=== PATIENT | male | born 1985 | race Caucasian/White ===

== ENCOUNTER 2017-03-12 09:13 | Emergency (ER) | payer OTHER ==
[2017-03-12 09:26] VITALS: BP 103/74
--- NOTE | 2017-03-12 10:50 | ED Physician Documentation ---
PD HPI OPHTHO - Stated complaint Stated Complaint: BI LAT EYE IRRITATION - Chief complaint Chief Complaint: Heent - History obtained from History obtained from: Patient - History of Present Illness Timing - onset: Last night Timing - details: Gradual onset Location: Both Quality / character: Burning Associated symptoms: Redness, Discharge Contributing factors: Exposed to conjunctivitis (his son has URI and has developed eye discharge yeserday. Patient with symptoms today. He has his sone with him and looks like conjunctiviits.). No: Wears contacts Similar symptoms before: Has not had sx before Recently seen: Not recently seen Review of Systems Constitutional: denies: Fever, Chills Eyes: reports: Discharge, Irritation. denies: Decreased vision, Photophobia Nose: denies: Rhinorrhea / runny nose, Congestion Throat: denies: Sore throat Respiratory: denies: Cough PD PAST MEDICAL HISTORY - Past Medical History Past Medical History: No - Past Surgical History Past Surgical History: Yes - Present Medications Home Medications: Ambulatory Orders Medication Instructions Recorded Confirmed Sulfacetamide Sodium [Bleph-10] 2 drops EACHEYE Q3H #1 bottle 03/12/17 - Allergies Allergies/Adverse Reactions: Allergies Allergy/AdvReac Type Severity Reaction Status Date / Time No Known Drug Allergies Allergy Verified 03/12/17 09:26 - Social History Does the pt smoke?: No Smoking Status: Never smoker Does the pt drink ETOH?: Yes - Immunizations Immunizations are current?: Yes PD ED PE NORMAL - Vitals Vital signs reviewed: Yes - General General: Alert and oriented X 3, No acute distress, Well developed/nourished - HEENT HEENT: PERRL, EOMI PD ED PE EXPANDED - Eyes Eyes: Injected conj/sclera, Exudate (mild, more on left) Results - Vitals Vitals: Vital Signs - 24 hr 03/12/17 09:23 Temperature 35.4 C L Heart Rate 85 Respiratory 20 Rate Blood Pressure 103/74 O2 Saturation 97 Oxygen O2 Source Room air PD MEDICAL DECISION MAKING - ED course Complexity details: considered differential, d/w patient Departure - Departure Disposition: 01 Home, Self Care Clinical Impression: Conjunctivitis Qualifiers: Conjunctivitis type: acute Acute conjunctivitis type: bacterial Laterality: bilateral Qualified Code(s): H10.33 - Unspecified acute conjunctivitis, bilateral Condition: Stable Record reviewed to determine appropriate education?: Yes Instructions: ED Conjunctivitis Bacterial Follow-Up: JOAQUÍN Diaz [Provider Group] Prescriptions: Sulfacetamide Sodium [Bleph-10] 2 drops EACHEYE Q3H #1 bottle Comments: Use the eye drops every 2-3 hours while awake for a few days until eye is all better. Recheck if not better over the next few days. Discharge Date/Time: 03/12/17 11:16
== END 2017-03-12 11:16 | disposition home or self-care (01) ==
LOC: ED 09:13
DX: H10.33 Unspecified acute conjunctivitis, bilateral (principal); B96.89 Other specified bacterial agents as the cause of diseases classified elsewhere
CPT/HCPCS: 99283

== ENCOUNTER 2019-07-08 10:41 | Emergency (ER) | payer OTHER ==
--- NOTE | 2019-07-08 11:40 | ED Physician Documentation ---
PD HPI URI - Stated complaint Stated Complaint: BODY SORENESS - Chief complaint Chief Complaint: General - History obtained from History obtained from: Patient - History of Present Illness Timing - onset: How many days ago (3) Timing duration: Days (3) Timing details: Abrupt onset, Still present Associated symptoms: Chills, Sinus pain, Sore throat, Other (diffuse muscle aches and back pain). No: Fever, Nasal congestion, Dry cough Contributing factors: No: Sick contact, Immunocompromised Similar symptoms before: Has not had sx before Recently seen: Not recently seen Review of Systems Constitutional: reports: Chills, Myalgias (diffusely). denies: Fever Nose: reports: Sinus pressure / pain. denies: Rhinorrhea / runny nose, Congestion Throat: reports: Sore throat Cardiac: denies: Chest pain / pressure Respiratory: denies: Cough GI: denies: Nausea, Vomiting, Diarrhea Skin: denies: Rash, Lesions Neurologic: reports: Generalized weakness. denies: Focal weakness, Numbness PD PAST MEDICAL HISTORY - Past Medical History Cardiovascular: None Respiratory: None Neuro: None Endocrine/Autoimmune: None - Past Surgical History Past Surgical History: Yes - Present Medications Home Medications: Ambulatory Orders Medication Instructions Recorded Confirmed Sulfacetamide Sodium [Bleph-10] 2 drops EACHEYE Q3H #1 bottle 03/12/17 Doxycycline Hyclate 100 mg PO BID #14 capsule 07/08/19 Naproxen 500 mg PO BID #20 tablet 07/08/19 dexAMETHasone [Decadron] 4 mg PO DAILY #5 tablet 07/08/19 - Allergies Allergies/Adverse Reactions: Allergies Allergy/AdvReac Type Severity Reaction Status Date / Time No Known Drug Allergies Allergy Verified 03/12/17 09:26 - Social History Does the pt smoke?: No Smoking Status: Never smoker Does the pt drink ETOH?: Yes - Immunizations Immunizations are current?: Yes PD ED PE NORMAL - Vitals Vital signs reviewed: Yes - General General: Alert and oriented X 3, No acute distress, Well developed/nourished - HEENT HEENT: Moist mucous membranes. No: Pharynx benign (some redness without swelling nor exudate) - Neck Neck: Supple, no meningeal sign, No adenopathy - Cardiac Cardiac: RRR, No murmur - Respiratory Respiratory: Clear bilaterally - Abdomen Abdomen: Soft, Non tender - Derm Derm: Normal color, Warm and dry - Neuro Neuro: Alert and oriented X 3, No motor deficit, Normal speech Results - Vitals Vitals: Vital Signs - 24 hr 07/08/19 07/08/19 10:48 13:55 Temperature 36.2 C L 36.7 C Heart Rate 85 76 Respiratory 18 12 Rate Blood Pressure 138/84 H 119/84 H O2 Saturation 100 100 Oxygen O2 Source Room air - Labs Labs: Laboratory Tests 07/08/19 07/08/19 07/08/19 12:35 12:38 12:38 WBC 4.2 L RBC 4.72 Hgb 14.2 Hct 42.0 MCV 89.0 MCH 30.1 MCHC 33.8 RDW 12.5 Plt Count 196 MPV 9.8 Neut # (Auto) 2.8 Lymph # (Auto) 0.8 L [place] # (Auto) 0.4 Eos # (Auto) 0.2 Baso # (Auto) 0.0 Absolute Nucleated RBC 0.00 Nucleated RBC % 0.0 ESR 10 Sodium Potassium Chloride Carbon Dioxide Anion Gap BUN Creatinine Estimated GFR (MDRD) Glucose Calcium Total Bilirubin AST ALT Alkaline Phosphatase Total Creatine Kinase Total Protein Albumin Globulin Albumin/Globulin Ratio Lipase Group A Strep Rapid Negative 07/08/19 12:38 WBC RBC Hgb Hct MCV MCH MCHC RDW Plt Count MPV Neut # (Auto) Lymph # (Auto) [place] # (Auto) Eos # (Auto) Baso # (Auto) Absolute Nucleated RBC Nucleated RBC % ESR Sodium 140 Potassium 3.7 Chloride 100 L Carbon Dioxide 31 Anion Gap 9.0 BUN 11 Creatinine 0.9 Estimated GFR (MDRD) 96 Glucose 91 Calcium 9.3 Total Bilirubin 0.5 AST 23 ALT 24 Alkaline Phosphatase 55 Total Creatine Kinase 113 Total Protein 8.1 Albumin 4.6 Globulin 3.5 Albumin/Globulin Ratio 1.3 Lipase 43 Group A Strep Rapid PD MEDICAL DECISION MAKING - ED course Complexity details: reviewed results, considered differential, d/w patient Departure - Departure Disposition: 01 Home, Self Care Clinical Impression: Generalized muscle ache Sinus infection Qualifiers: Sinusitis location: unspecified location Chronicity: acute Recurrence: non- recurrent Qualified Code(s): J01.90 - Acute sinusitis, unspecified Condition: Stable Record reviewed to determine appropriate education?: Yes Instructions: ED Muscle Aching, ED Sinusitis Abx Tx Follow-Up: AB ACOSTA MD [Primary Care Provider] - Prescriptions: dexAMETHasone [Decadron] 4 mg PO DAILY #5 tablet Doxycycline Hyclate 100 mg PO BID #14 capsule Naproxen 500 mg PO BID #20 tablet Comments: Stay well-hydrated. This may be a viral illness with feeling weak and achy. However there is some elements that sounds like sinus infection. Stay well-hydrated and rest today and likely tomorrow. Light activity is good. Naproxen anti-inflammatories twice daily for aches and pains. Add Tylenol if needed. Decadron steroid daily for 5 days for inflammation as well. Doxycycline antibiotic as directed for a week. Recheck if not improving well over the next 2 to 3 days. Forms: Activity restrictions Discharge Date/Time: 07/08/19 13:58
[2019-07-08] MEDS ORDERED: NAPROXEN 250 MG TABLET PO STA (12:12)
[2019-07-08] MEDS ORDERED: DEXAMETHASONE 10 MG/ML VIAL PO STA (12:12)
[2019-07-08] MEDS ORDERED: CHERRY SYRUP 10 ML UDC PO ONE (12:12)
[2019-07-08 12:48] LABS: BASOPHILS % (AUTO) 0.2 %; EOSINOPHILS # (AUTO) 0.2 10^3/uL (0.0-0.7); EOSINOPHILS % (AUTO) 4.8 %; HGB - HEMOGLOBIN 14.2 g/dL (14.0-18.0); LYMPHOCYTES # (AUTO) 0.8 10^3/uL (1.5-3.5); LYMPHOCYTES % (AUTO) 18.3 %; MEAN CORPUSCULAR HEMOGLOBIN 30.1 pg (27.0-31.0); MEAN CORPUSCULAR HGB CONC 33.8 g/dL (32.0-36.0); MEAN PLATELET VOLUME 9.8 fL (7.4-11.4); MONOCYTES # (AUTO) 0.4 10^3/uL (0.0-1.0); MONOCYTES % (AUTO) 9.1 %; NEUTROPHILS # (AUTO) 2.8 10^3/uL (1.5-6.6); NEUTROPHILS % (AUTO) 67.4 %; PLT - PLATELET COUNT 196 10^3/uL (130-450); RED BLOOD COUNT 4.72 10^6/uL (4.70-6.10); RED CELL DISTRIBUTION WIDTH 12.5 % (12.0-15.0); WHITE BLOOD COUNT 4.2 x10^3/uL (4.8-10.8)
[2019-07-08 12:59] LABS: ALBUMIN 4.6 g/dL (3.2-5.5); ALBUMIN/GLOBULIN RATIO 1.3 (1.0-2.2); BILIRUBIN,TOTAL 0.5 mg/dL (0.2-1.0); CALCIUM 9.3 mg/dL (8.5-10.3); CREATININE 0.9 mg/dL (0.6-1.2); TOTAL PROTEIN 8.1 g/dL (6.7-8.2)
--- NOTE | 2019-07-08 13:07 | XRAY Report ---
Reason: dyspnea/ cough Procedure Date: 07/08/2019 Accession Number: [id number] / [id number] Procedure: XR - Chest 2 View X-Ray CPT Code: 12576 FULL RESULT: EXAM: CHEST RADIOGRAPHY EXAM DATE: 07/08/2019 12:26 PM. CLINICAL HISTORY: Dyspnea/ cough. COMPARISON: None. TECHNIQUE: 2 views. FINDINGS: Lungs/Pleura: No focal opacities evident. No pleural effusion. No pneumothorax. Normal volumes. Mediastinum: Heart and mediastinal contours are unremarkable. Other: None. IMPRESSION: Normal 2-view chest radiography. [facility]
[2019-07-08 13:55] VITALS: BP 119/84
== END 2019-07-08 13:58 | disposition home or self-care (01) ==
LOC: ED 10:41
DX: M79.10 Myalgia, unspecified site (principal); J01.90 Acute sinusitis, unspecified
CPT/HCPCS: 36415; 71046; 80053; 82550; 83690; 85025; 85651; 87070; 87430; 99283; 99284; A9270